=== PATIENT | female | born 1950 | race Caucasian/White ===

== ENCOUNTER 2018-12-29 09:24 | Outpatient (CLI) | payer MEDICARE | END 2018-12-29 09:25 | disposition EMS.NT | LOC: EMS 09:24 | PROVIDERS: ATTEND Surgery | DX: S01.81XA Laceration without foreign body of other part of head, initial encounter (principal); W01.0XXA Fall on same level from slipping, tripping and stumbling without subsequent striking against object, initial encounter ==

== ENCOUNTER 2018-12-29 10:27 | Emergency (ER) | payer MEDICARE ==
[2018-12-29] MEDS ORDERED: BUFFERED LIDOCAINE 10 ML SYRINGE SUBQ STA (12:06)
--- NOTE | 2018-12-29 13:56 | ED Physician Documentation ---
PD HPI HEAD INJURY - Stated complaint Stated Complaint: HEAD LAC - Chief complaint Chief Complaint: Trauma Hd/Nk - History obtained from History obtained from: Patient, Family - History of Present Illness Mechanism of head injury: Fell Where head injury occurred: Home Timing - onset: Today Location of injury: Left Quality of pain: Pain, Throbbing Associated symptoms: No: LOC, AMS, Amnesia, Nausea / vomiting, Neck pain, Paresthesias, Seizures, Ear drainage, Nasal drainage Symptoms improve with: Rest Symptoms worsen with: Palpation, Movement Contributing factors: No: Anticoagulated Similar symptoms before: Has not had sx before Recently seen: Not recently seen - Additional information Additional information: 68-year-old female was walking away from her home when she tripped on 1 of the onset pavers that they are currently installing. She felt forward onto her face injuring her left forehead and periorbital tissues. She denies any loss of consciousness she denies any neck pain she denies any pain elsewhere.She has a large laceration to the left side of her forehead and bleeding has been controlled by a pressure dressing placed by the fire department. Review of Systems Constitutional: denies: Fever Eyes: denies: Decreased vision Ears: denies: Ear pain Nose: denies: Congestion Throat: denies: Sore throat Respiratory: denies: Cough GI: denies: Vomiting PD PAST MEDICAL HISTORY - Past Medical History Endocrine/Autoimmune: HyPOthyroidism - Past Surgical History Past Surgical History: No - Present Medications Home Medications: Ambulatory Orders Medication Instructions Recorded Confirmed Levothyroxine [Synthroid] 25 mcg PO QDAC 12/29/18 12/29/18 - Allergies Allergies/Adverse Reactions: Allergies Allergy/AdvReac Type Severity Reaction Status Date / Time No Known Drug Allergies Allergy Verified 12/29/18 10:37 - Social History Does the pt smoke?: No Smoking Status: Never smoker Does the pt drink ETOH?: Yes ETOH Use: Wine Does the pt have substance abuse?: No PD ED PE NORMAL - Vitals Vital signs reviewed: Yes (hypertensive ) - General General: Alert and oriented X 3, No acute distress, Well developed/nourished - HEENT HEENT: PERRL, EOMI, Other (There is an impressive 8.5cm laceration to the left forehead that is through the skin to the facia. The fasica is not interupted. There is anthony-orbital ecchymosis without orbital rim or zygomatic arch pain to palpation. ) - Neck Neck: Supple, no meningeal sign, No bony TTP - Respiratory Respiratory: No respiratory distress - Derm Derm: Normal color, Warm and dry, No rash - Extremities Extremities: No deformity, No edema - Neuro Neuro: Alert and oriented X 3, fringe knotter 2-12 intact, No motor deficit, No sensory deficit, Normal speech Eye Opening: Spontaneous Motor: Obeys Commands Verbal: Oriented GCS Score: 15 - Psych Psych: Normal mood, Normal affect PD ED PE EXPANDED - HEENT HEENT Visual: 1 - laceration (8.5cm deep to fascia clean) Results - Vitals Vitals: Vital Signs - 24 hr 12/29/18 12/29/18 10:34 14:10 Temperature 36.8 C 36.5 C Heart Rate 99 50 L Respiratory 18 18 Rate Blood Pressure 145/93 H 130/74 O2 Saturation 99 100 Oxygen O2 Source Room air Procedures - Laceration (location) left forehead Length in cm: 8.5 Wound type: Curved, Flap, Clean Neurovascular status: Sensory intact, Motor intact, Vascular intact Anesthesia: Lidocaine 1%, With bicarb Wound Preparation: Hibiclens, Irrigated copiously NS, Wound explored, To the base, Multiple flaps aligned Deep layer closure: Vicryl, size #-0 - enter number (5-0), # sutures - enter number (2) Skin layer closure: Nylon, Interrupted, Size #-0 - enter number (6-0) Other: Patient tolerated well, No complications, Neurovascular intact, Tetanus UTD PD MEDICAL DECISION MAKING - ED course Complexity details: reviewed results, re-evaluated patient, considered differential, d/w patient, d/w family ED course: 68-year-old female with a large impressive appearing left forehead laceration does well with the repair. She has extensive subcutaneous bleeding and will likely have blood tracking. I have discussed these findings with the patient I have asked her to come back in 5 days for suture removal she leaves the emergency department in stable and improved condition. Departure - Departure Disposition: Home, Self Care Clinical Impression: Forehead laceration Condition: Stable Instructions: ED Head Injury Closed, ED Laceration Facial Sutr Tape Follow-Up: Your, doctor [Other] Comments: You will need to have the sutures removed in about 5 days Discharge Date/Time: 12/29/18 14:13
[2018-12-29 14:11] VITALS: BP 130/74
== END 2018-12-29 14:13 | disposition home or self-care (01) ==
LOC: ED 10:27
DX: S01.81XA Laceration without foreign body of other part of head, initial encounter (principal); W01.198A Fall on same level from slipping, tripping and stumbling with subsequent striking against other object, initial encounter; Y93.01 Activity, walking, marching and hiking; Y92.009 Unspecified place in unspecified non-institutional (private) residence as the place of occurrence of the external cause
CPT/HCPCS: 12015; 99282; 99284

== ENCOUNTER 2020-11-21 09:59 | Emergency (ER) | payer MEDICARE ==
[2020-11-21 10:05] VITALS: BP 138/78
--- NOTE | 2020-11-21 10:35 | ED Physician Documentation ---
PD HPI UPPER EXT INJURY - Stated complaint Stated Complaint: LT WRIST INJ - Chief complaint Chief Complaint: Trauma Ext - History obtained from History obtained from: Patient - History of Present Illness Location: Left, Wrist Type of injury: Fall (pushed by horse and she tripped/fell backward. Left wrist pain.) Timing - onset: Yesterday Timing - duration: Days (07/02) Timing - details: Abrupt onset, Still present Improved by: Rest Worsened by: Moving, Palpating Associated symptoms: Swelling, Discolored (some redness). No: Weakness, Numbness Similar symptoms before: Has not had sx before Recently seen: Not recently seen Review of Systems Constitutional: denies: Fever, Chills Nose: denies: Rhinorrhea / runny nose, Congestion Throat: denies: Sore throat Respiratory: denies: Cough Skin: denies: Abrasion (s), Laceration (s) Neurologic: denies: Focal weakness, Numbness, Headache, Head injury PD PAST MEDICAL HISTORY - Past Medical History Cardiovascular: None Respiratory: None Neuro: None Endocrine/Autoimmune: HyPOthyroidism - Past Surgical History Past Surgical History: No - Present Medications Home Medications: Ambulatory Orders Medication Instructions Recorded Confirmed Levothyroxine [Synthroid] 25 mcg PO QDAC 12/29/18 12/29/18 - Allergies Allergies/Adverse Reactions: Allergies Allergy/AdvReac Type Severity Reaction Status Date / Time No Known Drug Allergies Allergy Verified 11/21/20 10:05 - Social History Does the pt smoke?: No Smoking Status: Never smoker Does the pt drink ETOH?: Yes Does the pt have substance abuse?: No PD ED PE NORMAL - Vitals Vital signs reviewed: Yes - General General: Alert and oriented X 3, No acute distress, Well developed/nourished - HEENT HEENT: Atraumatic - Derm Derm: Normal color, Warm and dry - Extremities Extremities: Other (left wrist on radial side with swelling and tenderness. No noted deformity. Snuffbox itself not tender. ) - Neuro Neuro: Alert and oriented X 3, No motor deficit, No sensory deficit Results - Vitals Vitals: Vital Signs - 24 hr 11/21/20 10:03 Temperature 36.7 C Heart Rate 50 L Respiratory 14 Rate Blood Pressure 138/78 H O2 Saturation 100 Oxygen O2 Source Room air - Rads (name of study) left wrist Radiology: Prelim report reviewed (no fractures), See rad report Procedures - Splint (location) left wrist Splint applied by: Tech Type of splint: Prefab velcro wrist Other: Patient tolerated well, No complications, Neurovascular intact Departure - Departure Disposition: 01 Home, Self Care Clinical Impression: Accidental fall Qualifiers: Encounter type: initial encounter Qualified Code(s): W19.XXXA - Unspecified fall, initial encounter Left wrist sprain Qualifiers: Encounter type: initial encounter Qualified Code(s): S63.502A - Unspecified sprain of left wrist, initial encounter Condition: Stable Record reviewed to determine appropriate education?: Yes Instructions: ED Sprain Wrist Follow-Up: GIOVANNI FRANCIS MD [Primary Care Provider] - Comments: No fracture seen on x-ray. Presume a sprain of the wrist and this can still hurt for just several days to week or so. Ice elevate and rest the wrist often. Anti-inflammatories such as ibuprofen or naproxen are good to use and add Tylenol if needed for pain. Use the wrist splint as needed for protecting of the wrist and guarded motion. Gentle range of motion periodically through the day. I would anticipate improvement over the next several days to a week or so. Recheck if not better in that timeframe. Discharge Date/Time: 11/21/20 11:20
--- NOTE | 2020-11-21 10:36 | XRAY Report ---
PROCEDURE: Wrist 3 View LT INDICATIONS: trauma TECHNIQUE: 3 views of the wrist were acquired. COMPARISON: None FINDINGS: Bones: No fractures or dislocations. No suspicious bony lesions. Osteoarthritic changes are noted throughout wrist joints. Soft tissues: Small corticated calcification adjacent to tip of ulnar styloid is noted likely represe nt old healed injury. IMPRESSION: No acute wrist fracture or dislocation. Mild wrist joint osteoarthritis. Reviewed by: Christopher Steele MD on 11/21/2020 10:34 AM PDT Approved by: Christopher Steele MD on 11/21/2020 10:34 AM PDT Station ID: [id number]
== END 2020-11-21 11:20 | disposition home or self-care (01) ==
LOC: ED 09:59
DX: S63.502A Unspecified sprain of left wrist, initial encounter (principal); W55.12XA Struck by horse, initial encounter; M19.032 Primary osteoarthritis, left wrist
CPT/HCPCS: 99282; 99283